=== PATIENT | female | born 1980 | race Caucasian/White ===

== ENCOUNTER 2021-12-30 07:39 | Emergency (ER) | payer BC ==
[~2021-12-30] VITALS: Ht 167.6 cm; Wt 70.0 kg
[2021-12-30 07:39] VITALS: BP 106/57
[2021-12-30] MEDS ORDERED: FLUORESCEIN 1MG EYE STRIP. OD ONE (08:00)
[2021-12-30] MEDS ORDERED: TETRACAINE 0.5% OPHTH SOLUTION 4ML BOTTLE. OD ONE (08:00)
[2021-12-30] MEDS ORDERED: KETOROLAC TROMETHAMINE 0.5% OPHTH SOLUTION BOTTLE. OS ONE (08:15)
[2021-12-30] MEDS ORDERED: POLYMYXIN/TRIMETHOPRIM OPHTH SOLUTION 10ML BOTTLE. OS ONE (08:15)
--- NOTE | 2021-12-30 08:38 | PHYS DOC ---
General Adult EDM: Chief Complaint: EYE PROBLEMS HPI: HPI: Patient is a 41-year-old female coming in for left eye pain. Patient states that yesterday was her contacts and she felt like her vision was a little bit blurred and had a "gritty" feeling. Patient states that after she took her contact out she had left eye pain. Like it hurt anytime the air touched it. Patient denies any orbital trauma or activities where she could've gotten a foreign body other than inserting her contacts. Denies any discharge. Pain worsened with opening eye, light, and blinking. Review of Systems: Review of Systems: All other systems within normal limits except for as noted in the HPI Current Medications: Current Meds: Current Medications Medications (Trade) Dose Ordered Sig/Roderick Start Time Stop Time Status Last Admin Dose Admin Fluorescein Sodium (Ful-Holley 1mg) 1 strip 1X ONCE 12/30/21 08:00 12/30/21 08:01 DC Ketorolac Tromethamine (Acular) 1 drop 1X ONCE 12/30/21 08:15 12/30/21 08:16 UNV Polymyxin/ Trimethoprim Sulfate (Polytrim) 1 drop 1X ONCE 12/30/21 08:15 12/30/21 08:16 UNV Tetracaine HCl (Tetracaine) 1 drop 1X ONCE 12/30/21 08:00 12/30/21 08:01 DC Allergies: Allergies: Allergies Coded Allergies Type Severity Reaction Last Updated Verified No Known Drug Allergies 12/30/21 No Physical Exam: PE: Constitutional: Well developed, well nourished, no acute distress, non-toxic appearance. [] HENT: Normocephalic, atraumatic, bilateral external ears normal, nose normal. [] Eyes: PERRLA, conjunctiva normal, no discharge. Extraocular was intact. Visual acuities: OS 20/20, OD 20/20, both 20/20. IOP: OS 17, OD 16 Left eye viewed with magnification and fluorescein, fluorescein uptake in sclera just lateral to cornea. No scratches. No foreign bodies in eye or lids viewed with inversion. Neck: No rigidity, supple, no stridor. [] Cardiovascular: Regular rate and rhythm, brisk cap refill [] Lungs & Thorax: Non labored symmetric respirations, no tachypnea or respiratory distress [] Abdomen: Soft, nondistended. Skin: Warm, dry, no erythema, no rash. [] Back: Unremarkable Extremities: No deformities, range of motion grossly intact, no lower extremity edema [] Neurologic: Alert and oriented X 3, no focal deficits noted. [] Psychologic: Affect normal, judgement normal, mood normal. [] EKG: EKG: [] Radiology/Procedures: Radiology/Procedures: [] Heart Score: C/O Chest Pain: No Risk Factors: Risk Factors: DM, Current or recent (<one month) smoker, HTN, HLP, family his tory of CAD, obesity. Risk Scores: Score 0 - 3: 2.5% MACE over next 6 weeks - Discharge Home Score 4 - 6: 20.3% MACE over next 6 weeks - Admit for Clinical Observation Score 7 - 10: 72.7% MACE over next 6 weeks - Early Invasive Strategies Course & Med Decision Making: Course & Med Decision Making Fluorescein uptake lateral to left cornea. No foreign bodies. Skull abrasion versus ulceration. Pain completely relieved with tetracaine. Normal intrao cular pressures. Differential includes abrasion, ulcer, or inflamed pinguecula. We'll treat prophylactically with antibiotics and close ophthalmology follow- up. Darshan Disclaimer: Darshan Disclaimer: This electronic medical record was generated, in whole or in part, using a voice recognition dictation system. 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 ROXANNE GOODRICH MD Dec 30, 2021 08:38
[2021-12-30] MEDS ORDERED: MOXIFLOXACIN 0.5% OPHTH SOLUTION 3ML BOTTLE. OS ONE (08:45)
== END 2021-12-30 09:08 | disposition home or self-care (01) ==
LOC: ER 07:39
DX: S05.02XA Injury of conjunctiva and corneal abrasion without foreign body, left eye, initial encounter (principal); X58.XXXA Exposure to other specified factors, initial encounter; Y93.89 Activity, other specified; Y92.89 Other specified places as the place of occurrence of the external cause; Y99.8 Other external cause status
CPT/HCPCS: 99283